=== PATIENT | male | born 1955 | race Caucasian/White ===

== ENCOUNTER 2017-10-08 07:02 | Emergency (ER) | payer BC, OTHER ==
[2017-10-08 07:20] VITALS: BP 171/78
[2017-10-08] MEDS ORDERED: Dexamethasone TAB* 4 MG PO ONE (07:33)
--- NOTE | 2017-10-08 07:44 | ED ---
Skin Complaint - HPI Summary HPI Summary: 62 yr old male with the complaint of rash for almost two weeks that comes and goes, is itchy, and located on the arms, trunk and lower leg at times. It is hives, and he has had some eyelid itching and swelling, nasal congestion, lower lip swelling. TOday he only has some hives on his bilateral antecubital areas , and lower right abdominal wall. No SOB, no stridor, no drooling, no tongue swelling, no eyelid or mouth involvement. He does not have a primary care doctor. Though he states that when he goes to the doctor it tends to make his BP high. - History of Current Complaint Chief Complaint: UCRash Stated Complaint: RASH ON LT ARM Pain Intensity: 0 - Allergy/Home Medications Allergies/Adverse Reactions: Allergies Allergy/AdvReac Type Severity Reaction Status Date / Time No Known Allergies Allergy Verified 10/08/17 07:20 Home Medications: Home Medications diPHENhydraMINE PO* [Benadryl PO 25 MG TAB*] 25 - 50 mg PO Q6H PRN 10/08/17 [ History Confirmed 10/08/17] PMH/Surg Hx/FS Hx/Imm Hx Previously Healthy: Yes Infectious Disease History: No Infectious Disease History: Denies: Traveled Outside the [place] in Last 30 Days - Family History Known Family History: Positive: None Family History: He denies family history - Social History Occupation: Employed Full-time Alcohol Use: 3 beers/daily Substance Use Type: Reports: None Smoking Status (MU): Former Smoker Length of Time of Smoking/Using Tobacco: 1-2 PPD x 25 Years Review of Systems Constitutional: Negative Negative: Shortness Of Breath Positive: Other - hives All Other Systems Reviewed And Are Negative: Yes Physical Exam Triage Information Reviewed: Yes Vital Signs On Initial Exam: Initial Vitals Temp Pulse Resp BP Pulse Ox 98.1 F 64 16 171/78 99 10/08/17 07:13 10/08/17 07:13 10/08/17 07:13 10/08/17 07:13 10/08/17 07:13 Vital Signs Reviewed: Yes Appearance: Positive: Well-Appearing, No Pain Distress Skin: Positive: Other - urticaria localized to the antecubital areas, and one small patch lower right abdominal wall. Eyes: Positive: EOMI ENT: Positive: Normal ENT inspection. Negative: Nasal drainage, Muffled voice, Hoarse voice Neck: Positive: Nontender Respiratory/Lung Sounds: Positive: Clear to Auscultation, Breath Sounds Present Cardiovascular: Positive: RRR. Negative: Murmur Abdomen Description: Positive: Nontender Musculoskeletal: Positive: Strength/ROM Intact Neurological: Positive: Sensory/Motor Intact, Alert, Oriented to Person Place, Time, CN Intact II-III, Normal Gait, Speech Normal Psychiatric: Positive: Normal - Sylva Coma Scale Best Eye Response: 4 - Spontaneous Best Motor Response: 6 - Obeys Commands Best Verbal Response: 5 - Oriented Coma Scale Total: 15 Diagnostics - Vital Signs Vital Signs Temp Pulse Resp BP Pulse Ox 10/08/17 07:13 98.1 F 64 16 171/78 99 - Laboratory Lab Statement: Any lab studies that have been ordered have been reviewed, and results considered in the medical decision making process. Course/Dx - Course Course Of Treatment: 62 yr old male with urticaria that are minimal at this point, but have been recurrent. Will put on medrol dose bridget. He has been extensively counseled on the need for a primary doctor, blood pressure monitoring, and possibly treatment if high, and other health maintenance. he was informed that having blood pressure elevated over the long run leads to kidney failure, heart attacks, strokes, among other things. The patient verbalized that he would follow up with primary care. - Diagnoses Provider Diagnoses: Hypertension, Urticaria Discharge - Sign-Out/Discharge Documenting (check all that apply): Discharge/Admit/Transfer - Discharge Plan Condition: Good Disposition: HOME Prescriptions: methylPREDNISolone [Medrol Dosepak 4 MG*] 4 mg PO .SEE BRIDGET INSTRUCTION #1 bridget Patient Education Materials: Urticaria (ED), Hypertension (ED) Referrals: [facility] [place] [facility] [Outside] - 1 Day No Primary Care Phys,NOPCP [Primary Care Provider] - Additional Instructions: Please be sure to see a primary care doctor to monitor your health. Your blood pressure is high here,and you need to monitor this and if it is high after several readings you would need to be on blood pressure medications. You need a primary doctor to take care of this among other health maintenance issues for a man in his 60s. Do not delay. - Billing Disposition and Condition Condition: GOOD Disposition: HOME
== END 2017-10-08 07:45 | disposition home or self-care (01) ==
LOC: UCCORT 07:02
DX: I10 Essential (primary) hypertension (principal); L50.9 Urticaria, unspecified
CPT/HCPCS: 99202; G0463; J8540

== ENCOUNTER 2018-10-04 07:54 | Emergency (ER) | payer BC, OTHER ==
[2018-10-04 08:12] VITALS: BP 176/98
--- NOTE | 2018-10-04 08:32 | UC ---
Lower Extremity/Ankle HPI - HPI Summary HPI Summary: right great toe pain x 1 month pain is severe 7 out of 10 at the start , now is 2 out of 10. no known injury worse with walking / better with rest and ice + redness, swelling, took some "gout meds" from his brother for 2 days with good improvement , used some otc cream on his foot and now having a itchy rash no fever, no chills , no hx of gout - History of Current Complaint Chief Complaint: UCLowerExtremity Stated Complaint: RT FOOT PAIN Time Seen by Provider: 10/04/18 08:10 Hx Obtained From: Patient Onset/Duration: Gradual Onset, Lasting Weeks - 4, Still Present Severity Initially: Severe Severity Currently: Moderate Pain Intensity: 2 Aggravating Factor(s): Standing, Ambulation Alleviating Factor(s): Rest, Elevation, Ice Able to Bear Weight: Yes - Allergies/Home Medications Allergies/Adverse Reactions: Allergies Allergy/AdvReac Type Severity Reaction Status Date / Time No Known Allergies Allergy Verified 10/04/18 08:12 Home Medications: Home Medications NK [No Home Medications Reported] 10/04/18 [History Confirmed 10/04/18] PMH/Surg Hx/FS Hx/Imm Hx Previously Healthy: Yes - Surgical History Surgical History: None - Family History Known Family History: Positive: Other - brother with gout Family History: He denies family history - Social History Alcohol Use: Daily Alcohol Amount: beer Substance Use Type: None Smoking Status (MU): Former Smoker Length of Time of Smoking/Using Tobacco: 1-2 PPD x 25 Years When Did the Patient Quit Smoking/Using Tobacco: 2006 Review of Systems All Other Systems Reviewed And Are Negative: Yes Constitutional: Positive: Negative Skin: Positive: Rash Eyes: Positive: Negative ENT: Positive: Negative Respiratory: Positive: Negative Cardiovascular: Positive: Negative Is Patient Immunocompromised?: No Physical Exam Triage Information Reviewed: Yes Appearance: Well-Appearing, No Pain Distress, Well-Nourished Vital Signs: Initial Vital Signs Temp 98.2 F 10/04/18 08:02 Pulse 64 10/04/18 08:02 Resp 16 10/04/18 08:02 BP 176/98 10/04/18 08:02 Pulse Ox 99 10/04/18 08:02 Vital Signs Reviewed: Yes Eye Exam: Normal Eyes: Positive: Conjunctiva Clear ENT: Positive: Normal ENT inspection, Hearing grossly normal, Pharynx normal Neck exam: Normal Neck: Positive: Supple, Nontender Respiratory: Positive: Chest non-tender, Lungs clear, Normal breath sounds Abdominal Exam: Normal Musculoskeletal: Positive: Other: - right grat toe: + swelling, mild erythema, tender to touch Skin: Positive: Rashes - macular / erythema, right ankle / foot Diagnostics - Radiology No standard instances Radiology Interpretation Completed By: Radiologist Summary of Radiographic Findings: xray right foot: IMPRESSION: OSTEOARTHRITIS. NO ACUTE OSSEOUS INJURY. IF SYMPTOMS PERSIST, RECOMMEND REPEAT IMAGING. Lower Extremity Course/Dx - Differential Dx/Diagnosis Provider Diagnosis: Gout, Contact dermatitis, Elevated BP without diagnosis of hypertension Discharge - Sign-Out/Discharge Documenting (check all that apply): Patient Departure All imaging exams completed and their final reports reviewed: Yes - Discharge Plan Condition: Stable Disposition: HOME Referrals: No Primary Care Phys,NOPCP [Primary Care Provider] - - Billing Disposition and Condition Condition: STABLE Disposition: Home
== END 2018-10-04 08:58 | disposition home or self-care (01) ==
LOC: UCCORT 07:54
DX: M10.071 Idiopathic gout, right ankle and foot (principal); R03.0 Elevated blood-pressure reading, without diagnosis of hypertension; L25.9 Unspecified contact dermatitis, unspecified cause; Z87.891 Personal history of nicotine dependence
CPT/HCPCS: 99212; G0463